=== PATIENT | female | born 1980 | race Two or more races ===

== ENCOUNTER 2018-06-14 17:10 | Emergency (ER) | payer OTHER ==
[~2018-06-14] VITALS: Ht 162.6 cm; Wt 79.8 kg
[2018-06-14 17:20] VITALS: BP 124/76
--- NOTE | 2018-06-14 17:37 | Diagnostic Imaging Report ---
EXAM: XR Right Ankle Complete, 3 or More Views CLINICAL HISTORY: PAIN TECHNIQUE: Frontal, lateral and oblique views of the right ankle. COMPARISON: No relevant prior studies available. FINDINGS: Bones/joints: Osseous excrescence off the posterior tibia measures approximately 1.8 cm CC by 0.6 cm AP and appears contiguous with cortex. No obvious soft tissue component seen. No acute fracture. No dislocation. Soft tissues: Mild lateral soft tissue swelling over the lateral malleolus. IMPRESSION: 1. Mild lateral soft tissue swelling over the lateral malleolus. 2. Otherwise no acute abnormality. 3. Recommend CT with intravenous contrast or MRI without and with intravenous contrast to further characterize aforementioned osseous excrescence involving the tibia.
[2018-06-14] MEDS ORDERED: TYLENOL EXTRA500 MG ORAL (17:50)
--- NOTE | 2018-06-14 17:51 | Emergency Room Report ---
History of Present Illness General Chief Complaint: Pain Source: Patient, Medical Record Present Illness HPI 37-year-old female patient presents to ER complaining of right ankle pain 2 hours. Patient reports that she was at work and walking uphill when she twisted her right ankle. Patient reports pain with ambulation. Patient reports swelling of her right ankle. Patient denies hitting her head or loss consciousness. Patient denies radiation of pain. Patient denies other acute symptoms. Denies open wound, bleeding, abrasions. Allergies: Coded Allergies: No Known Allergies (Unverified , 06/14/18) Patient History Past Medical History: see triage record Last Menstrual Period: hysterectomy 2012 Reviewed Nursing Documentation: PMH: Agreed; PSxH: Agreed Nursing Documentation-PMH Past Medical History: No History, Except For Hx Diabetes: Yes - controlled by diet Review of Systems All Other Systems: negative except mentioned in HPI Physical Exam Vital Signs Date Time Temp Pulse Resp B/P (MAP) Pulse Ox O2 Delivery O2 Flow Rate FiO2 06/14/18 17:15 98.0 87 18 124/76 95 Room Air 98.1 Sp02 EP Interpretation: reviewed, normal General Appearance: well appearing, no apparent distress, alert, GCS 15, non- toxic Head: normocephalic, atraumatic Eyes: bilateral eye normal inspection, bilateral eye PERRL ENT: hearing grossly normal, normal pharynx, no angioedema, normal voice, uvula midline, moist mucus membranes Neck: full range of motion Respiratory: lungs clear, normal breath sounds, no rhonchi, no respiratory distress, no accessory muscle use, no wheezing, speaking full sentences Cardiovascular #1: regular rate, rhythm, no edema Cardiovascular #2: 2+ dorsalis pedis (R), 2+ dorsalis pedis (L) Musculoskeletal: back normal, digits/nails normal, gait/station normal, non- tender, decreased range of motion - secondary to pain, swelling - right lateral malleolus and ankle, other - sensation intact to light touch, capillary less than 2 seconds, mild ecchymosis, no erythema, negative syndesmotic squeeze test , no tenderness to palpation over proximal fibula, tender - right posterior lateral malleolus Psychiatric: mood/affect normal Medical Decision Making PA Attestation Dr. Queen is my supervising Physician whom patient management has been discussed with. Diagnostic Impression: Primary Impression: Ankle sprain ER Course Pt. presents to the ED c/o right ankle pain. Ddx considered but are not limited to fracture, sprain, strain, contusion, dislocation. No erythema, no warmth to touch, no fever, nontoxic appearing, low suspicion for septic joint. Vital signs: are WNL, pt. is afebrile Ordered X-ray and pain medication. ER COURSE Provided with pain medication. An X-ray of the right ankle shows no acute fracture, soft tissue swelling over lateral malleolus, ossification on posterior tibia per the official [employer] reading. Copy of results provided to patient, instructed patient to follow-up with primary care provider to discuss results and further treatment. Likely ankle sprain, advised patient on treatment. Splint was applied to the right ankle was checked afterwards by me showing good alignment and support with distal neurovascular functioning intact. Crutches provided. Patient instructed on RICE method: rest, ice, compression, elevation. Patient instructed on rest, ice and heat. Patient instructed to be NWB. Workmen's Compensation paperwork completed. Follow-up with Workmen's Compensation physician. Followup with primary care provider. Discuss referral to ortho/pain management/ PT as needed. Discuss further imaging with MRI/CT as needed. DISCHARGE: -Rx provided for Tylenol for pain symptoms. At this time pt. is stable for d/c to home. Patient is resting comfortably, in no acute distress, nontoxic appearing, talking without difficulty. Will provide printed patient care instructions, and any necessary prescriptions. Patient instructed to follow with primary care provider in 3 - 5 days and to request further follow-up as needed. Care plan and follow up instructions have been discussed with the patient prior to discharge. Take medications as directed. Patient questions asked and answered. Patient reports understanding and agreement to treatment plan. ER precautions given, patient instructed to return to ER immediately for any new or worsening of symptoms. - Please note that this Emergency Department Report was dictated using [employer] technology software, occasionally this can lead to erroneous entry secondary to interpretation by the dictation equipment. Other X-Ray Diagnostic Results Other X-Ray Diagnostic Results : X-Ray ordered: right ankle # of Views/Limited Vs Complete: 3 View Indication: Pain EP Interpretation: Yes PA Xray: Interpretation reviewed, by supervising MD, and agrees with findings. Interpretation: no dislocation, no fractures, other - soft tissue swelling, ossification on posterior tibia Impression: Other - soft tissue swelling PA Scribe Text Marquis Zacarias PA-C Last Vital Signs Date Time Temp Pulse Resp B/P (MAP) Pulse Ox O2 Delivery O2 Flow Rate FiO2 06/14/18 17:20 98.1 89 18 124/76 95 Room Air 98.1 Disposition: HOME, SELF-CARE Condition: Stable Scripts Acetaminophen* (TYLENOL EXTRA STRENGTH*) 500 Mg Tablet 500 MG ORAL Q8H PRN for Prn Headache/Temp > 101, #30 TAB 0 Refills Prov: Dk Zacarias 06/14/18 Referrals: NON PHYSICIAN (PCP) Patient Instructions: Ankle Sprain, [id number] Additional Instructions: Patient instructed to follow up with primary care provider and discuss further referral to orthopedics. Patient instructed on RICE method: rest, ice, compression, elevation. Patient instructed to NWB. Take medications as directed. Patient questions asked and answered. ER precautions given, patient instructed to return to ER immediately for any new or worsening of symptoms. Dk Zacarias Jun 14, 2018 17:51
[2018-06-14 17:59] VITALS: BP 124/76
== END 2018-06-14 18:13 | disposition home or self-care (01) ==
LOC: EMR 17:20
DX: S93.401A Sprain of unspecified ligament of right ankle, initial encounter (principal); X58.XXXA Exposure to other specified factors, initial encounter; Y92.9 Unspecified place or not applicable; E11.9 Type 2 diabetes mellitus without complications; Z90.710 Acquired absence of both cervix and uterus
CPT/HCPCS: 99283